=== PATIENT | female | born 1965 | race Caucasian/White ===

== ENCOUNTER 2017-01-15 01:43 | Emergency (ER) | payer BC ==
[~2017-01-15] VITALS: Ht 157.5 cm; Wt 56.7 kg
--- NOTE | 2017-01-15 01:45 | NUR ---
PATIENT STATES HIT TOP OF HEAD ON KITCHEN CABINET 3 DAYS AGO. NOW C/O DIZZINESS WITH NAUSEA. DENIES LOC, PT IS ALERT, ORIENTED X 3, NO RESP DISTRESS NOTED OR REPORTED UPON ASSESSMENT... MD AT BEDSIDE...
--- NOTE | 2017-01-15 03:51 | NUR ---
Patient discharged to home in stable conditon. Written and verbal after care instructions given. Patient verbalizes understanding of instructions. Pt walked out of ER unassisted with belongings at side...
[2017-01-15 04:31] VITALS: BP 129/88
== END 2017-01-15 04:33 | disposition home or self-care (01) ==
LOC: ER 01:52
DX: S06.0X0A Concussion without loss of consciousness, initial encounter (principal); R51 Headache; R42 Dizziness and giddiness; W22.8XXA Striking against or struck by other objects, initial encounter; Y93.89 Activity, other specified; Y99.8 Other external cause status; Y92.89 Other specified places as the place of occurrence of the external cause
CPT/HCPCS: 70450; 99284; A4663